=== PATIENT | male | born 1940 | race Caucasian/White ===

== ENCOUNTER → 2018-06-10 07:07 | Outpatient (CLI) | payer MEDICARE, BC, SELFPAY ==
[2018-06-10 08:05] LABS: Add Manual Diff / Slide Review NO; Basophils Percent Auto 1.2 % (0-2); Eosinophils Percent Auto 2.3 % (2-4); Hematocrit 40.2 % (41-53); Hemoglobin 13.2 g/dL (13.5-17.5); Lymphocytes Percent Auto 25.4 % (25-40); Mean Corpuscular HGB Conc 32.8 % (30-36); Mean Corpuscular Hemoglobin 28.2 PG (26-34); Mean Corpuscular Volume 86.1 fL (80-100); Monocytes Percent Auto 10.9 % (3-14); Neutrophils Absolute Auto 3000 /uL (3000-5900); Neutrophils Percent Auto 60.2 % (50-75); Platelet Count 384 X10^3/uL (150-400); Red Blood Cell Count 4.67 X10^6/uL (4.5-5.9); Red Cell Distribution Width 13.6 % (11.6-14.8); White Blood Cell Count 4.9 X10^3/uL (4.5-11.0)
[2018-06-10 08:27] LABS: Alanine Aminotransferase 25 IU/L (21-72); Albumin 4.1 g/dL (3.5-5.0); Albumin Globulin Ratio 1.3 (1.0-2.8); Alkaline Phosphatase 55 U/L (38-126); Aspartate Aminotransferase 21 IU/L (17-59); Bilirubin Total 1.2 mg/dL (0.2-1.3); Blood Urea Nitrogen 16 mg/dL (9-20); Calcium 9.2 mg/dL (8.4-10.2); Carbon Dioxide 32 mmol/L (22-32); Chloride 102 mmol/L (98-107); Cholesterol 182 mg/dL (140-199); Estimated Glomerular Filt Rate > 60.0 mL/min (>60); Globulin 3.2 g/dL (1.7-4.1); Glucose 98 mg/dL (80-110); HDL Cholesterol 50 mg/dL (40-60); HEMOLYSIS < 15 (0-50); LDL Cholesterol Calculated 117 mg/dL (<100); Potassium 4.3 mmol/L (3.4-5.1); Sodium 142 mmol/L (137-145); Total Protein 7.3 g/dL (6.3-8.2); Triglycerides 77 mg/dL (35-150)
[2018-06-10 08:54] LABS: Prostate Specific Antigen Scrn 5.51 ng/mL (0.1-4.0)
[2018-06-10 08:57] LABS: Thyroid Stimulating Hormone 1.65 uIU/mL (0.47-4.68)
== END ==
PROVIDERS: Family Provider Family Medicine; PCP Family Medicine; Visit Provider Family Medicine
DX: I10 Essential (primary) hypertension (principal); R97.20 Elevated prostate specific antigen [PSA]; E78.5 Hyperlipidemia, unspecified
CPT/HCPCS: 36415; 80053; 80061; 84443; 85025; G0103

== ENCOUNTER 2018-07-18 06:55 | Emergency (ER) | payer MEDICARE, BC, SELFPAY ==
[2018-07-18 07:11] VITALS: BP 144/92; PULSE 114; RESP 24; TEMP 36.8; O2SAT 100; BMI 28.3
--- NOTE | 2018-07-18 07:29 | PC.NURSE ---
pt c/o onset of diaphoresis while on tredmil this am. states goes on tredmil 3x a week, never has this happen.
--- NOTE | 2018-07-18 07:34 | DI.RAD.S_ITS ---
PROCEDURE: XR CHEST 1V INDICATIONS: Chest pain. TECHNIQUE: One view of the chest was acquired. COMPARISON: [facility], , CHEST 2 VIEW, 09/12/2017, 9:28. FINDINGS: Surgical changes and devices: Monitoring leads project of the chest. Surgical clips in right upper quadrant of the abdomen consistent with prior cholecystectomy. Lungs and pleura: No pleural effusions or pneumothorax. Lungs are clear. Mediastinum: Mediastinal contours appear normal. Heart size is normal. Calcification of the aortic arch. Bones and chest wall: No suspicious bony lesions. Overlying soft tissues appear unremarkable. IMPRESSION: No acute cardiopulmonary disease. Dictated by: Bartolome Araujo M.D. on 07/18/2018 at 8:29 Approved by: Bartolome Araujo M.D. on 07/18/2018 at 8:31
--- NOTE | 2018-07-18 07:37 | ED.DIZZY ---
HPI - Dizziness General Chief Complaint: Dizziness Stated Complaint: Dizzy Time Seen by Provider: 07/18/18 07:08 Source: patient and EMS Mode of arrival: EMS Limitations: no limitations History of Present Illness HPI Narrative: Patient is a 78-year-old male presents with diaphoresis. He was walking on the treadmill this morning which she normally does 3 days a week when he got extremely lightheaded dizzy and diaphoretic. EMS found and be hypotensive in AFib. He has no prior history of atrial fibrillation. He denies any chest pain or heart palpitations. His blood pressure is now within normal limits and he is completely asymptomatic and feels fine. No nausea vomiting abdominal pain shortness of breath. MD complaint: dizziness and lightheadedness Related Data Home Medications Medication Instructions Recorded Confirmed MULTIVITAMIN (#MULTIPLE VITAMINS) 1 cap PO Q DAY #0 01/27/12 Previous Rx's Medication Instructions Recorded sildenafil [Viagra] 100 mg PO QDAY #5 02/19/13 hydrochlorothiazide 25 mg tablet 12.5 mg PO QAM #45 tab 04/15/18 metoprolol tartrate 25 mg PO BID #60 tab 07/18/18 Allergies Allergy/AdvReac Type Severity Reaction Status Date / Time No Known Drug Allergies Allergy Verified 07/18/18 07:11 Review of Systems Review of Systems GENERAL: Denies chills, fatigue, malaise, fever, sweats, travel HEENT: Denies sinus pain, ear pain, sore throat, difficulty swallowing, neck pain RESPIRATORY: Denies dyspnea, cough, wheezing, hemoptysis, sputum. CARDIOVASCULAR: See HPI GASTROINTESTINAL: Denies nausea, vomiting, abdominal pain, diarrhea, constipation, melena. : Denies dysuria, frequency, incontinence, hematuria, urinary retention, flank pain. MUSCULOSKELETAL: Denies weakness, joint pain, or bony pain SKIN: No rash, no erythema, no pruritus NEUROLOGIC: Denies weakness, dizziness, headache, numbness, change in speech, confusion 12 point review of systems is negative except for those stated above and HPI PFSH Medical History Hypertension (Acute) Social History Smoking Status: Former smoker alcohol intake: never substance use type: does not use Exam Initial Vital Signs Initial Vital Signs: Vital Signs Temperature 98.2 F 07/18/18 07:11 Pulse Rate 114 H 07/18/18 07:11 Respiratory Rate 24 07/18/18 07:11 Blood Pressure 144/92 H 07/18/18 07:11 Pulse Oximetry 100 07/18/18 07:11 GENERAL: Alert slightly diaphoretic male HEENT: Head atraumatic,EOMI, pupils reactive, face symmetric, neck is supple no JVD CARDIOVASCULAR: Tachycardic irregularly irregular no murmur RESPIRATORY: Breath sounds equal bilaterally, no wheezes rales or rhonchi. ABDOMEN: Soft, nontender. Normoactive bowel sounds all 4 quadrants. No guarding or rebound. EXTREMITIES: Normal range of motion, no clubbing or edema. Neurovascularly intact NEUROLOGICAL: Alert and oriented x4.Normal gait and speech. Cranial nerves II through XII grossly intact. SKIN: Warm, dry, no laceration, no petechiae, no rashes or lesions. Scores CHADS-VASc Congestive heart failure: no Hypertension: yes Age 75 years or older: yes Diabetes mellitus: no Stroke, TIA, or TE: no Vascular disease: no Age 65 to 74 years: no Sex category (female): Male CHADS-VASc Score: 3 Course Orders Ordered: ED Orders 07/18/18 06:45 Complete Blood Count AUTO DIFF Stat Comprehensive Metabolic Panel Stat Magnesium Stat Partial Thromboplastin Time Stat Prothrombin Time INR Stat Thyroid Stimulating Hormone Stat Troponin & CK Cardiac Panel Stat 07/18/18 07:34 XR chest 1V Stat Sodium Chloride (Normal Saline 0.9%) 1,000 mls @ 1,000 mls/hr IV CONT JB Last Infusion: 07/18/18 08:14 Dose: 0 mls/hr Admin: 07/18/18 07:40 Dose: 1,000 mls/hr Discontinued Medications Aspirin (Aspirin Chew) 324 mg PO NOW ONE Stop: 07/18/18 09:14 Last Admin: 07/18/18 09:47 Dose: 324 mg Diltiazem HCl (Cardizem) 20 mg IV NOW ONE Stop: 07/18/18 07:34 Last Admin: 07/18/18 07:40 Dose: 20 mg Vital Signs - 8 hr 07/18/18 07:11 07/18/18 07:40 07/18/18 08:00 Temperature 98.2 F Pulse Rate 114 H 122 H 97 H Respiratory Rate 24 12 Blood Pressure 144/92 H 119/78 Blood Pressure [Left Arm] 139/85 Pulse Oximetry 100 99 MDM - Dizziness Lab Data Attestation: I reviewed the patient's lab results. Result diagrams: 07/18/18 06:45 07/18/18 06:45 Lab Results 07/18/18 07/18/18 07/18/18 Range/Units 06:45 06:45 06:45 WBC 7.0 (4.5-11.0) X10^3/uL RBC 5.08 (4.5-5.9) X10^6/uL Hgb 13.9 (13.5-17.5) g/dL Hct 41.6 (41-53) % MCV 82.0 (80-100) fL MCH 27.3 (26-34) PG MCHC 33.3 (30-36) % RDW 14.2 (11.6-14.8) % Plt Count 405 H (150-400) X10^3/uL Neut % (Auto) 58.7 (50-75) % Lymph % (Auto) 25.6 (25-40) % [place] % (Auto) 12.7 (3-14) % Eos % (Auto) 2.1 (2-4) % Baso % (Auto) 0.9 (0-2) % Neut # (Auto) 4100 (3567-5613) /uL PT 12.1 (10.1-12.7) SECONDS INR 1.1 (0.9-1.3) APTT 33 (26.4-36.2) SECONDS Sodium 144 (137-145) mmol/L Potassium 3.8 (3.4-5.1) mmol/L Chloride 107 (98-107) mmol/L Carbon Dioxide 24 (22-32) mmol/L BUN 19 (9-20) mg/dL Creatinine 1.20 (0.66-1.25) mg/dL Estimated GFR 58.9 L (>60) mL/min BUN/Creatinine Ratio 15.8 (6-22) Glucose 153 H (80-110) mg/dL Calcium 9.1 (8.4-10.2) mg/dL Magnesium 2.0 (1.6-2.3) mg/dL Total Bilirubin 1.3 (0.2-1.3) mg/dL AST 21 (17-59) IU/L ALT 26 (21-72) IU/L Alkaline Phosphatase 62 (38-126) U/L Total Creatine Kinase 74 (55-170) U/L Troponin I 0.013 (0.01-0.034) ng/mL Total Protein 7.1 (6.3-8.2) g/dL Albumin 4.0 (3.5-5.0) g/dL Globulin 3.1 (1.7-4.1) g/dL Albumin/Globulin Ratio 1.3 (1.0-2.8) TSH (0.47-4.68) uIU/mL 07/18/18 Range/Units 06:45 WBC (4.5-11.0) X10^3/uL RBC (4.5-5.9) X10^6/uL Hgb (13.5-17.5) g/dL Hct (41-53) % MCV (80-100) fL MCH (26-34) PG MCHC (30-36) % RDW (11.6-14.8) % Plt Count (150-400) X10^3/uL Neut % (Auto) (50-75) % Lymph % (Auto) (25-40) % [place] % (Auto) (3-14) % Eos % (Auto) (2-4) % Baso % (Auto) (0-2) % Neut # (Auto) (1313-1031) /uL PT (10.1-12.7) SECONDS INR (0.9-1.3) APTT (26.4-36.2) SECONDS Sodium (137-145) mmol/L Potassium (3.4-5.1) mmol/L Chloride (98-107) mmol/L Carbon Dioxide (22-32) mmol/L BUN (9-20) mg/dL Creatinine (0.66-1.25) mg/dL Estimated GFR (>60) mL/min BUN/Creatinine Ratio (6-22) Glucose (80-110) mg/dL Calcium (8.4-10.2) mg/dL Magnesium (1.6-2.3) mg/dL Total Bilirubin (0.2-1.3) mg/dL AST (17-59) IU/L ALT (21-72) IU/L Alkaline Phosphatase (38-126) U/L Total Creatine Kinase (55-170) U/L Troponin I (0.01-0.034) ng/mL Total Protein (6.3-8.2) g/dL Albumin (3.5-5.0) g/dL Globulin (1.7-4.1) g/dL Albumin/Globulin Ratio (1.0-2.8) TSH 2.49 (0.47-4.68) uIU/mL Imaging Data Chest x-ray: Radiologist's impression: PROCEDURE: XR CHEST 1V INDICATIONS: Chest pain. TECHNIQUE: One view of the chest was acquired. COMPARISON: [facility], , CHEST 2 VIEW, 09/12/2017, 9:28. FINDINGS: Surgical changes and devices: Monitoring leads project of the chest. Surgical clips in right upper quadrant of the abdomen consistent with prior cholecystectomy. Lungs and pleura: No pleural effusions or pneumothorax. Lungs are clear. Mediastinum: Mediastinal contours appear normal. Heart size is normal. Calcification of the aortic arch. Bones and chest wall: No suspicious bony lesions. Overlying soft tissues appear unremarkable. IMPRESSION: No acute cardiopulmonary disease. Dictated by: Bartolome Araujo M.D. on 07/18/2018 at 8:29 ECG Data Attestation: I personally reviewed and interpreted this ECG as follows: Prior ECG tracings: not available for review Interpretation: EKG 1. AFib with RVR rate 1 0 IX no priors to compare no ST changes EKG 2. AFib rate [address] changes EKG 3. Normal sinus rhythm rate [address] changes MDM Narrative Medical decision making narrative: Patient is asymptomatic once his blood pressure is corrected but remains in AFib with RVR rate 120-130. It is really unclear when his atrial fib started I do suspect that started this morning became quite hypotensive while exercising however that is not definite. Patient is not a candidate for cardioversion. He does convert back into sinus rhythm. He is given 1 dose of aspirin. I have discussed at length with both he and his that he needs further cardiac workup and he is at risk for stroke. I recommended taking aspirin daily. I spoke with Dr. Trotter, recommend starting metoprolol 25 twice a day and daily aspirin until he follows up with Dr. Fuller. Discharge Plan Departure Patient Disposition: Home Clinical Impression: Atrial fibrillation Instructions: Atrial Fibrillation Activity Restrictions/Additional Instructions: *You have been diagnosed with atrial fibrillation *What to do: You are currently back into a regular sinus rhythm. However he may require further cardiac testing with your primary including echocardiogram possible stress test. Is a risk for strokes *Continue to take medications as directed Aspirin 81 mg once a day Metoprolol 25 mg twice a day-[facility] *Follow up with your primary care provider in 2-3 days *Return to ER if you should have lightheadedness, dizziness, chest pain heart palpitations, shortness of breath or any new, worsening or concerning symptoms Prescriptions: New metoprolol tartrate 25 mg tablet 25 mg PO BID Qty: 60 RF: 0 No Action MULTIVITAMIN (#MULTIPLE VITAMINS) 1 cap PO Q DAY Qty: 0 RF: 0 sildenafil [Viagra] 100 MG tablet 100 mg PO QDAY Qty: 5 RF: 12 hydrochlorothiazide 25 mg tablet 12.5 mg PO QAM Qty: 45 RF: 3 Stand Alone Forms: Work/School Restrictions
[2018-07-18 07:40] VITALS: BP 119/78; PULSE 122
[2018-07-18] MEDS: SODIUM CHLORIDE 0.9% 1,000 ML 1000 ML IV (07:40)
[2018-07-18] MEDS: dilTIAZem 5 MG/ML SDV 20 MG IV (07:40)
[2018-07-18 07:43] LABS: Add Manual Diff / Slide Review NO; Basophils Percent Auto 0.9 % (0-2); Eosinophils Percent Auto 2.1 % (2-4); Hematocrit 41.6 % (41-53); Hemoglobin 13.9 g/dL (13.5-17.5); Lymphocytes Percent Auto 25.6 % (25-40); Mean Corpuscular HGB Conc 33.3 % (30-36); Mean Corpuscular Hemoglobin 27.3 PG (26-34); Monocytes Percent Auto 12.7 % (3-14); Neutrophils Absolute Auto 4100 /uL (3000-5900); Neutrophils Percent Auto 58.7 % (50-75); Platelet Count 405 X10^3/uL (150-400); Red Blood Cell Count 5.08 X10^6/uL (4.5-5.9); Red Cell Distribution Width 14.2 % (11.6-14.8)
[2018-07-18 07:48] LABS: INR 1.1 (0.9-1.3); PTT Partial Thromboplastin Tim 33 SECONDS (26.4-36.2); Prothrombin Time 12.1 SECONDS (10.1-12.7)
[2018-07-18 07:51] LABS: Alanine Aminotransferase 26 IU/L (21-72); Albumin Globulin Ratio 1.3 (1.0-2.8); Alkaline Phosphatase 62 U/L (38-126); Aspartate Aminotransferase 21 IU/L (17-59); BUN Creatinine Ratio 15.8 (6-22); Bilirubin Total 1.3 mg/dL (0.2-1.3); Blood Urea Nitrogen 19 mg/dL (9-20); Calcium 9.1 mg/dL (8.4-10.2); Carbon Dioxide 24 mmol/L (22-32); Chloride 107 mmol/L (98-107); Creatine Kinase 74 U/L (55-170); Estimated Glomerular Filt Rate 58.9 mL/min (>60); Globulin 3.1 g/dL (1.7-4.1); Glucose 153 mg/dL (80-110); HEMOLYSIS < 15 (0-50); Potassium 3.8 mmol/L (3.4-5.1); Sodium 144 mmol/L (137-145); Total Protein 7.1 g/dL (6.3-8.2)
[2018-07-18 08:00] VITALS: BP 139/85; PULSE 97; RESP 12; O2SAT 99
[2018-07-18 08:03] LABS: Troponin I 0.013 ng/mL (0.01-0.034)
[2018-07-18 08:57] LABS: Thyroid Stimulating Hormone 2.49 uIU/mL (0.47-4.68)
[2018-07-18] MEDS: ASPIRIN 81 MG TAB 324 MG PO (09:47)
[2018-07-18 09:58] VITALS: BP 136/72; PULSE 64; RESP 16; O2SAT 98
== END 2018-07-18 09:59 | disposition home or self-care (01) ==
PROVIDERS: Emergency Provider Emergency Medicine; Family Provider Family Medicine; PCP Family Medicine
DX: I48.91 Unspecified atrial fibrillation (principal)
CPT/HCPCS: 36591; 71045; 80053; 82550; 82553; 83735; 84443; 84484; 85025; 85610; 85730; 93005; 93041; 96361; 96374; 99284; 99285

== ENCOUNTER → 2018-07-25 10:30 | Outpatient (CLI) | payer MEDICARE, BC, SELFPAY ==
--- NOTE | 2018-07-25 10:31 | DI.ECHO.S_ITS ---
[facility]---------+ [facility] +---------+ : : [address] : : : [place], [place] : : : : [id number] : : : : Phone: [phone]+ Echocardiogram Report + + :Name: CURT THOMPSON Study Date: 07/25/2018 Height: 70 in : :[facility] Weight: 195 lb : : Gender: Male BSA: 2.1 m2 : :: 1940 Age: 78 yrs BP: 140/70 mmHg: :Reason For Study: Atrial fibrillation : : Performed By: Maria Guadalupe Rivera : :Referring: WILVER CONROY : + + Interpretation Summary 1) Normal left ventricular thickness, size, wall motion, and systolic function (EF 60-65%). 2) Normal right ventricular size and function. 3) Mild aortic regurgitation present. This was trace to mild to mild on prior echo. 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 It measure 4.1cm on the prior echo. 5) Compared to the Echo odone 10/14/2013, very slightly changes have occurred as noted above. Procedure: A two-dimensional transthoracic echocardiogram with color flow and Doppler was performed. The study quality was technically adequate. Comparison is made with the echocardiogram of 10-14-13. The patient was in normal sinus rhythm during the exam. Left Ventricle: The left ventricle is normal in size, wall thickness, and systolic function without any focal wall motion abnormalities. The ejection fraction is estimated to be 60-65%. Assessment of diastolic parameters indicates normal left ventricular diastolic function and normal filling pressures. Right Ventricle: The right ventricle is normal size. The right ventricular systolic function is normal. Atria: The left atrial size is normal. Right atrial size is normal. The interatrial septum is intact with no evidence for an atrial septal defect. Mitral Valve: The mitral valve leaflets appear mildly thickened, but open well. There is trace mitral regurgitation. Aortic Valve: The aortic valve is trileaflet. The aortic valve opens well. There is mild aortic regurgitation. Tricuspid Valve: The tricuspid valve is normal in structure and function. There is trace tricuspid regurgitation. The right ventricular systolic pressure is estimated at 24 mmHg assuming a right atrial pressure of 3 mm Hg. Pulmonic Valve: The pulmonic valve is normal in structure and function. There is trace pulmonic regurgitation. Great Vessels: The aortic root is mildly dilated. The ascending aorta is mildly enlarged. The IVC is of normal diameter and collapses greater than 50% with a sniff. This suggests a low right atrial pressure of 3 mm Hg. Pericardium/ Pleura There is no pericardial effusion. There is no pleural effusion. MMode/2D Measurements & Calculations LVIDd: 4.7 cm Ao root diam: 3.9 cm LVIDs: 3.1 cm Aortic Jxn: 3.1 cm FS: 34.0 % asc Aorta Diam: 4.2 cm EPSS: 0.41 cm Ao Arch Diam (Prox Trans): 3.6 cm IVSd: 1.1 cm LVPWd: 0.75 cm LV christopher. diameter/BSA (cm/m^2): 2.3 LV sys. diameter/BSA (cm/m^2): 1.5 LA dimension: 4.2 cm RA long axis: 5.3 cm LA A2 area: 21.0 cm2 RA area: 16.1 cm2 LA A4 area: 15.6 cm2 RA vol: 41.8 ml LA length (vol): 5.5 cm RA : 20.3 ml/m2 LA vol: 50.6 ml IVC diam: 1.9 cm LA vol index: 24.5 ml/m2 RVDd major: 4.7 cm RVD1 (basal): 3.7 cm RVD2 (mid): 3.7 cm Doppler Measurements & Calculations Ao V2 max: 114.3 cm/sec AI P1/2t: 639.9 msec Ao V2 mean: 76.0 cm/sec AI dec slope: 154.0 cm/sec2 Ao max P.2 mmHg Ao mean P.6 mmHg Ao V2 VTI: 29.5 cm MV E max hossein: 75.5 cm/sec TR max hossein: 230.0 cm/sec MV A max hossein: 46.6 cm/sec TR max P.2 mmHg MV E/A: 1.6 PA V2 max: 95.3 cm/sec Med Peak E' Hossein: 5.8 cm/sec PA V2 mean: 61.1 cm/sec E/E' med: 13.0 PA mean P.8 mmHg Lat Peak E' Hossein: 8.9 cm/sec PA Accel Time: 0.13 sec E/E' lat: 8.4 E/e' average: 10.7 MV dec time: 0.22 sec MV P1/2t: 65.8 msec MV P1/2t max hossein: 75.1 cm/sec MVA(P1/2t): 3.3 cm2 Reading Physician:02:00 PM
== END ==
PROVIDERS: Family Provider Family Medicine; PCP Family Medicine; Visit Provider Family Medicine
DX: I48.91 Unspecified atrial fibrillation (principal); I35.1 Nonrheumatic aortic (valve) insufficiency
CPT/HCPCS: 93306

== ENCOUNTER → 2018-08-25 08:49 | Outpatient (CLI) | payer MEDICARE, BC, SELFPAY | PROVIDERS: Family Provider Family Medicine; PCP Family Medicine; Visit Provider Urology | DX: R97.20 Elevated prostate specific antigen [PSA] (principal) | CPT/HCPCS: 36415; 84153 ==

== ENCOUNTER → 2018-09-03 08:13 | Outpatient (CLI) | payer MEDICARE, BC, SELFPAY ==
--- NOTE | 2018-09-03 | DI.NM.S_ITS ---
PROCEDURE: NM JAYSON PERF SPECT REST & STR Rest and exercise myocardial perfusion SPECT with gated imaging and ejection fraction RADIOPHARMACEUTICAL: 26.7 mCi Tc-99m sestamibi IV at rest and 24.7 mCi Tc-99m sestamibi IV at peak exercise. A two day-protocol was performed. INDICATIONS: Paroxysmal atrial fibrillation TECHNIQUE: Radiopharmaceutical was injected at peak stress test, and also at rest. SPECT images were obtained. SPECT myocardial perfusion images were displayed in short axis, horizontal long axis, and vertical long axis views. Gated images were reviewed using [employer]et[employer] software. COMPARISON: None. CARDIAC STRESS: A standard Gallito treadmill exercise tolerance test was performed by the patient under the supervision of an attending staff. The patient exercised for 7 minutes and 19 seconds; functional aerobic impairment (MARIBEL) is -20% on active scale. Hemodynamic data: There is normal blood pressure and heart rate response to exercise stress. Patient achieved 117% of maximum predicted heart rate at peak exercise. Symptoms: Patient denied chest pain during exercise. EKG: Resting ECG shows normal sinus rhythm. With exercise, there were 1mm horizontal ST depressions in the inferior and anterolateral leads. Given the fast heart rate above max predicted, SVT appears possible at peak exercise but artifacts make it difficult to make definitive diagnosis. Occasional PACs and PVCs present. FINDINGS: Raw data: There is good myocardial labeling by radiotracer. No significant motion artifacts. [id number] ratio is 0.3 (normal is less than 0.38 for sestamibi tracer, and less than 0.50 for thallium tracer). Left ventricle function: Gated images demonstrate normal left ventricle wall thickening. No segmental wall motion abnormality. No transient ischemic dilation; TID is 0.69 (normal less than 1.3). The left ventricle resting end-diastolic volume is 94 mL. Left ventricle stress ejection fraction is 82%; normal values are above 45%. Myocardial perfusion: There is normal distribution of activity in the left and right ventricular myocardium with stress images. No fixed or reversible perfusion defects. IMPRESSION: Normal, low risk treadmill nuclear stress test. Hypertension at baseline. 1) No perfusion evidence of ischemia or infarction. 2) Normal left ventricular size, wall motion, and systolic function (EF post stress 82%). 3) ECG non-diagnostic. With exercise, there were 1mm horizontal ST depressions in the inferior and anterolateral leads. Given the fast heart rate above max predicted, SVT appears possible at peak exercise but artifacts make it difficult to make definitive diagnosis. 4) No angina during the study. 5) Hypertension present during the study (BP 180/88). 6) Good exercise capacity (10.1 METs, MARIBEL -20% on active scale). Target heart rate achieved. 7) Compared to the nuclear stress test done 11/12/2008, no significant change in perfusion images. Dictated by: Pavel Hilliard MD on 09/04/2018 at 18:52 Approved by: Pavel Hilliard MD on 09/04/2018 at 18:58
--- NOTE | 2018-09-03 09:26 | P.PCN_ITS ---
Cardiac Stress Test Report Referral & Results Date Patient Seen: 09/03/18 Requesting provider: Pavel Hilliard Indication: AFib Rest ECG: Unremarkable Procedure Note: Today following both written and verbal informed consent the patient was exercised according to a standard Gallito protocol patient went for a total of 7 min 19 sec achieving a maximum heart rate of 169 maximum systolic blood pressure of 180. This is approximately 10.1 METS. Exercise was terminated at this point because of targets having been met, patient could have continued longer. Patient was also given Cardiolite through a previously started Hep-Lock IV by the nuclear reactor engineer approximately 1 minute prior to the cessation of exercise. There are no ST-T segment changes. Some very minor nonspecific ST segment flattening with activity that rapidly resolved and exercise. Patient did go into an SVT with a heart rate in the 160+ range in recovery that was aborted with a cough from the patient. This was not atrial fibrillation but in SVT. This was not captured unfortunately on the tracings Rare PVCs were also identified Functional aerobic impairment rated-20% on the active scale Impression: No evidence of ischemia SVT as above Excellent exercise capacity Of note, patient reports he has not been taking his metoprolol when asked about resuming that after this test given the SVT above. Please note: Actual ECG tracings can be found in the PACS system.
== END ==
PROVIDERS: Family Provider Family Medicine; PCP Family Medicine; Visit Provider Internal Medicine Cardiovascular Disease
DX: I48.0 Paroxysmal atrial fibrillation (principal); I47.1 Supraventricular tachycardia; I10 Essential (primary) hypertension
CPT/HCPCS: 78452; 93016; 93017; 93018; A9502

== ENCOUNTER → 2019-08-28 11:49 | Outpatient (CLI) | payer MEDICARE, BC, SELFPAY ==
[2019-08-28 13:26] LABS: Prostate Specific Antigen 5.44 ng/mL (0.10-4.00)
== END ==
PROVIDERS: PCP Family Medicine; Visit Provider Urology
DX: R97.20 Elevated prostate specific antigen [PSA] (principal)
CPT/HCPCS: 36415; 84153

== ENCOUNTER → 2019-12-01 06:57 | Outpatient (CLI) | payer MEDICARE, BC, SELFPAY ==
[2019-12-01 08:12] LABS: Add Manual Diff / Slide Review NO; Basophils Absolute Auto 100 /uL (0-100); Basophils Percent Auto 1.4 % (0-2); Eosinophils Absolute Auto 100 /uL (0-450); Eosinophils Percent Auto 2.8 % (2-4); Hematocrit 46.3 % (41-53); Hemoglobin 15.8 g/dL (13.5-17.5); Lymphocytes Absolute Auto 1200 /uL (1100-4500); Lymphocytes Percent Auto 25.8 % (25-40); Mean Corpuscular Hemoglobin 31.4 PG (26-34); Mean Corpuscular Volume 92.2 fL (80-100); Monocytes Absolute Auto 500 /uL (0-900); Monocytes Percent Auto 10.7 % (3-14); Neutrophils Absolute Auto 2900 /uL (1500-7000); Neutrophils Percent Auto 59.3 % (50-75); Platelet Count 326 X10^3/uL (150-400); Red Blood Cell Count 5.02 X10^6/uL (4.5-5.9); Red Cell Distribution Width 13.9 % (11.6-14.8); White Blood Cell Count 4.8 X10^3/uL (4.5-11.0)
[2019-12-01 08:24] LABS: Hemoglobin A1C% w Est Avg Glu 5.2 % (4.0-6.0)
[2019-12-01 08:40] LABS: Alanine Aminotransferase 18 IU/L (<50); Albumin 4.3 g/dL (3.5-5.0); Albumin Globulin Ratio 1.2 (1.0-2.8); Alkaline Phosphatase 65 U/L (38-126); Aspartate Aminotransferase 25 IU/L (17-59); BUN Creatinine Ratio 19.1 (6-22); Bilirubin Total 1.6 mg/dL (0.2-1.3); Blood Urea Nitrogen 21 mg/dL (9-20); Calcium 9.3 mg/dL (8.4-10.2); Carbon Dioxide 27 mmol/L (22-32); Chloride 100 mmol/L (98-107); Cholesterol 210 mg/dL (140-199); Estimated Glomerular Filt Rate > 60.0 mL/min (>60); Globulin 3.5 g/dL (1.7-4.1); Glucose 102 mg/dL (80-110); HDL Cholesterol 39 mg/dL (40-60); HEMOLYSIS < 15 (0-50); LDL Cholesterol Calculated 150 mg/dL (<100); Magnesium 2.1 mg/dL (1.6-2.3); Potassium 3.9 mmol/L (3.4-5.1); Sodium 138 mmol/L (137-145); Total Protein 7.8 g/dL (6.3-8.2); Triglycerides 104 mg/dL (35-150)
[2019-12-01 09:10] LABS: Thyroid Stimulating Hormone 2.06 uIU/mL (0.47-4.68)
== END ==
PROVIDERS: PCP Family Medicine; Visit Provider Family Medicine
DX: I10 Essential (primary) hypertension (principal); I49.9 Cardiac arrhythmia, unspecified
CPT/HCPCS: 36415; 80053; 80061; 83036; 83735; 84443; 85025

== ENCOUNTER → 2020-05-18 07:38 | Outpatient (CLI) | payer MEDICARE, BC, SELFPAY ==
[2020-05-18 09:02] LABS: Blood Urea Nitrogen 20 mg/dL (9-20); Calcium 9.4 mg/dL (8.4-10.2); Carbon Dioxide 29 mmol/L (22-32); Chloride 103 mmol/L (98-107); Cholesterol 157 mg/dL (140-199); Estimated Glomerular Filt Rate > 60.0 mL/min (>60); Glucose 96 mg/dL (80-110); HDL Cholesterol 43 mg/dL (40-60); HEMOLYSIS < 15 (0-50); LDL Cholesterol Calculated 96 mg/dL (<100); Potassium 4.5 mmol/L (3.4-5.1); Sodium 137 mmol/L (137-145); Triglycerides 88 mg/dL (35-150)
== END ==
PROVIDERS: PCP Family Medicine; Referring Provider Family Medicine; Visit Provider Family Medicine
DX: E78.5 Hyperlipidemia, unspecified (principal)
CPT/HCPCS: 36415; 80048; 80061

== ENCOUNTER → 2020-11-22 14:00 | Outpatient (CLI) | payer MEDICARE, BC, SELFPAY ==
[2020-11-22 16:25] LABS: Prostate Specific Antigen 5.04 ng/mL (0.10-4.00)
== END ==
PROVIDERS: PCP Family Medicine; Referring Provider Urology; Visit Provider Urology
DX: R97.20 Elevated prostate specific antigen [PSA] (principal)
CPT/HCPCS: 36415; 84153

== ENCOUNTER → 2021-08-31 06:46 | Outpatient (CLI) | payer MEDICARE, BC, SELFPAY ==
[2021-08-31 10:45] LABS: Alanine Aminotransferase 19 IU/L (<50); Albumin Globulin Ratio 1.3 (1.0-2.8); Alkaline Phosphatase 49 U/L (38-126); Aspartate Aminotransferase 23 IU/L (17-59); BUN Creatinine Ratio 17.2 (6-22); Bilirubin Total 1.8 mg/dL (0.2-1.3); Blood Urea Nitrogen 17 mg/dL (9-20); Calcium 9.4 mg/dL (8.4-10.2); Carbon Dioxide 28 mmol/L (22-32); Chloride 101 mmol/L (98-107); Cholesterol 174 mg/dL (140-199); Estimated Glomerular Filt Rate > 60.0 mL/min (>60); Glucose 96 mg/dL (80-110); HDL Cholesterol 51 mg/dL (40-60); HEMOLYSIS < 15 (0-50); LDL Cholesterol Calculated 108 mg/dL (<100); Potassium 4.4 mmol/L (3.4-5.1); Sodium 138 mmol/L (137-145); Triglycerides 73 mg/dL (35-150)
== END ==
PROVIDERS: PCP Internal Medicine; Referring Provider Internal Medicine; Visit Provider Internal Medicine
DX: E78.2 Mixed hyperlipidemia (principal); I10 Essential (primary) hypertension
CPT/HCPCS: 36415; 80053; 80061

== ENCOUNTER → 2022-01-08 10:39 | Outpatient (CLI) | payer MEDICARE, BC, SELFPAY ==
[2022-01-09 07:38] LABS: PSA Free % 18.4 % (.); PSA, Total 6.2 ng/mL (0.0-4.0)
== END ==
PROVIDERS: PCP Internal Medicine; Referring Provider Urology; Visit Provider Urology
DX: R97.20 Elevated prostate specific antigen [PSA] (principal)
CPT/HCPCS: 36415; 84153; 84154

== ENCOUNTER → 2023-05-28 06:56 | Outpatient (CLI) | payer MEDICARE, BC, SELFPAY ==
[2023-05-28 08:02] LABS: Alanine Aminotransferase 17 IU/L (<50); Albumin 3.6 g/dL (3.5-5.0); Albumin Globulin Ratio 1.2 (1.0-2.8); Alkaline Phosphatase 50 U/L (38-126); Aspartate Aminotransferase 22 IU/L (17-59); BUN Creatinine Ratio 23.4 (6-22); Bilirubin Total 1.3 mg/dL (0.2-1.3); Blood Urea Nitrogen 22 mg/dL (9-20); Calcium 8.7 mg/dL (8.4-10.2); Carbon Dioxide 32 mmol/L (22-32); Chloride 103 mmol/L (98-107); Cholesterol 143 mg/dL (140-199); Estimated Glomerular Filt Rate > 60 mL/min (>60); Globulin 2.9 g/dL (1.7-4.1); Glucose 97 mg/dL (80-110); HDL Cholesterol 45 mg/dL (40-60); HEMOLYSIS < 15 (0-50); LDL Cholesterol Calculated 85 mg/dL (<100); Potassium 4.4 mmol/L (3.4-5.1); Sodium 137 mmol/L (137-145); Total Protein 6.5 g/dL (6.3-8.2); Triglycerides 63 mg/dL (35-150)
== END ==
PROVIDERS: PCP Internal Medicine; Referring Provider Internal Medicine; Visit Provider Internal Medicine
DX: I10 Essential (primary) hypertension (principal); E80.4 Gilbert syndrome; G25.0 Essential tremor; Z13.6 Encounter for screening for cardiovascular disorders
CPT/HCPCS: 36415; 80053; 80061

== ENCOUNTER → 2023-09-10 10:23 | Outpatient (CLI) | payer MEDICARE, BC, SELFPAY ==
--- NOTE | 2023-09-10 10:25 | DI.RAD.S_ITS ---
PROCEDURE: XR CHEST 2V INDICATIONS: cough TECHNIQUE: 2 views of the chest were acquired. COMPARISON: [facility], CR, XR CHEST 1V, 07/18/2018, 7:37. FINDINGS: Surgical changes and devices: Right upper quadrant cholecystectomy clips. Lumbar spinal fusion hardware is partially imaged. Lungs and pleura: Lungs are clear. No pleural effusions or pneumothorax. Mediastinum: Mediastinal contours are normal. Heart size is normal. Bones and chest wall: No suspicious bony abnormalities. Soft tissues appear unremarkable. IMPRESSION: No acute cardiopulmonary abnormality is seen. Approved by: Edilberto Hilario M.D. on 09/10/2023 at 14:43
== END ==
PROVIDERS: PCP Internal Medicine; Referring Provider Internal Medicine; Visit Provider Internal Medicine
DX: R05.9 Cough, unspecified (principal)
CPT/HCPCS: 71046

== ENCOUNTER → 2025-04-02 16:27 | Outpatient (CLI) | payer MEDICARE, BC, SELFPAY ==
--- NOTE | 2025-04-02 16:31 | DI.RAD.S_ITS ---
PROCEDURE: XR CHEST 2V INDICATIONS: cough TECHNIQUE: 2 views of the chest were acquired. COMPARISON: [facility], CR, XR CHEST 2V, 09/10/2023, 10:29. FINDINGS: Surgical changes and devices: None. Lungs and pleura: Lungs are clear. No pleural effusions or pneumothorax. Mediastinum: Mediastinal contours are normal. Heart size is normal. Bones and chest wall: No suspicious bony abnormalities. Soft tissues appear unremarkable. IMPRESSION: No acute pulmonary process. Dictated by: Shira Song M.D. on 04/02/2025 at 16:40 Approved by: Shira Song M.D. on 04/02/2025 at 16:40
[2025-04-02 17:42] LABS: Alanine Aminotransferase 27 IU/L (<50); Albumin 4.1 g/dL (3.5-5.0); Albumin Globulin Ratio 1.2 (1.0-2.8); Alkaline Phosphatase 62 U/L (38-126); Aspartate Aminotransferase 26 IU/L (17-59); BUN Creatinine Ratio 26.6 (6-22); Bilirubin Total 1.2 mg/dL (0.2-1.3); Blood Urea Nitrogen 25 mg/dL (9-20); Calcium 8.7 mg/dL (8.4-10.2); Carbon Dioxide 26 mmol/L (22-32); Chloride 104 mmol/L (98-107); Estimated Glomerular Filt Rate > 60 mL/min (>60); Globulin 3.3 g/dL (1.7-4.1); Glucose 99 mg/dL (70-99); HEMOLYSIS < 15 (0-50); Potassium 4.5 mmol/L (3.4-5.1); Sodium 137 mmol/L (137-145); Total Protein 7.4 g/dL (6.3-8.2)
[2025-04-02 18:13] LABS: Prostate Specific Antigen 8.69 ng/mL (0.10-4.00)
== END ==
PROVIDERS: PCP Internal Medicine; Referring Provider Internal Medicine; Visit Provider Internal Medicine
DX: R97.20 Elevated prostate specific antigen [PSA] (principal); R05.9 Cough, unspecified; I10 Essential (primary) hypertension; E80.4 Gilbert syndrome
CPT/HCPCS: 36415; 71046; 80053; 84153